=== PATIENT | male | born 1970 | race Two or more races ===

== ENCOUNTER 2021-10-05 19:25 | Emergency (ER) | payer OTHER ==
[~2021-10-05] VITALS: Ht 175.3 cm; Wt 113.4 kg
[2021-10-05 19:27] VITALS: BP 163/110
== END 2021-10-05 19:40 | disposition left against medical advice (07) ==
LOC: ER 19:27
DX: R07.9 Chest pain, unspecified (principal); Z53.21 Procedure and treatment not carried out due to patient leaving prior to being seen by health care provider
CPT/HCPCS: 93005

== ENCOUNTER 2023-02-16 19:00 | Emergency (ER) | payer OTHER ==
[~2023-02-16] VITALS: Ht 175.3 cm; Wt 119.7 kg
[2023-02-16 19:55] VITALS: BP 150/107
[2023-02-16] MEDS ORDERED: CEPH-510 PO (22:54)
[2023-02-16] MEDS ORDERED: ACET-1158 PO (22:54)
[2023-02-16] MEDS ORDERED: TETANUS-DIPTH-ACEL PERTUSSIS 0.5ML SYR Tdap IM ONE (23:00)
== END 2023-02-16 23:27 | disposition home or self-care (01) ==
LOC: ER 19:00
DX: S61.211A Laceration without foreign body of left index finger without damage to nail, initial encounter (principal); W26.0XXA Contact with knife, initial encounter; Y93.89 Activity, other specified; Y92.89 Other specified places as the place of occurrence of the external cause; Y99.8 Other external cause status
CPT/HCPCS: 12001; 90471; 90715